=== PATIENT | female | born 1970 | race African-American/Black ===

== ENCOUNTER 2021-05-20 19:14 | Emergency (ER) | payer SELFPAY ==
[~2021-05-20] VITALS: Ht 167.6 cm; Wt 55.8 kg
[2021-05-20 20:38] VITALS: BP 140/76
[2021-05-20] MEDS ORDERED: traMADol HCL 50 MG TAB PO ONE (20:45)
== END 2021-05-20 21:16 | disposition home or self-care (01) ==
LOC: ER 19:17
DX: S33.5XXA Sprain of ligaments of lumbar spine, initial encounter (principal); M54.16 Radiculopathy, lumbar region; X58.XXXA Exposure to other specified factors, initial encounter; Y93.89 Activity, other specified; Y92.89 Other specified places as the place of occurrence of the external cause; Y99.8 Other external cause status
CPT/HCPCS: 72100